=== PATIENT | male | born 1985 | race Caucasian/White ===

== ENCOUNTER 2016-03-22 07:05 | Emergency (ER) | payer SELFPAY ==
[2016-03-22] MEDS ORDERED: LIDOCAINE 2%/EPI 1:100,000 20 ML VIAL. ONE (07:39)
[2016-03-22] MEDS ORDERED: HYDROCODONE/APAP 5/325MG TABLET. PO ONE (07:45)
--- NOTE | 2016-03-22 07:58 | RAD ---
Left hand, 3 views, 03/22/2016: History: Little finger injury A partially radiopaque bandage is projected over the little finger. No fracture or dislocation is identified. There is mild soft tissue deformity of the little finger distally. IMPRESSION: No acute bony abnormality is detected.
[2016-03-22] MEDS ORDERED: HYDR-971 PO (08:27)
[2016-03-22 08:45] VITALS: BP 133/77
[2016-03-22] MEDS ORDERED: LIDOCAINE 2%/EPI 1:100,000 20 ML VIAL. IJ ONE (08:45)
--- NOTE | 2016-03-22 09:32 | ED.ADGEN ---
Adult General HPI HPI Patient is a 31-year-old male presents emergency department with a laceration to his right little finger. Patient did this just prior to arrival. His tetanus is up-to-date. Denies any other injuries. Patient got it caught in a belt driven to tool at home. Review of Systems Review of Systems Constitutional: Denies fever or chills [] Eyes: Denies change in visual acuity, redness, or eye pain [] HENT: Denies nasal congestion or sore throat [] Respiratory: Denies cough or shortness of breath [] Cardiovascular: No additional information not addressed in HPI [] GI: Denies abdominal pain, nausea, vomiting, bloody stools or diarrhea [] : Denies dysuria or hematuria [] Musculoskeletal: Denies back pain or joint pain [] Integument: Denies rash or skin lesions [] Neurologic: Denies headache, focal weakness or sensory changes [] Endocrine: Denies polyuria or polydipsia [] Current Medications Current Medications Current Medications Medications (Trade) Dose Ordered Sig/Mansoor Start Time Stop Time Status Last Admin Dose Admin Acetaminophen/ Hydrocodone Bitart (Lortab 5/325) 2 tab 1X ONCE 03/22/16 07:45 03/22/16 07:46 DC 03/22/16 07:29 2 TAB Lidocaine/ Epinephrine (Xylocaine 2%-Epi 1:100,000) 20 ml 1X ONCE 03/22/16 08:45 03/22/16 08:46 DC 03/22/16 07:50 20 ML Allergies Allergies Allergies Coded Allergies Type Severity Reaction Last Updated Verified Penicillins Allergy Unknown 03/22/16 Yes Physical Exam Physical Exam Constitutional: Well developed, well nourished, no acute distress, non-toxic appearance. [] HENT: Normocephalic, atraumatic, bilateral external ears normal, oropharynx moist, no oral exudates, nose normal. [] Eyes: PERRLA, EOMI, conjunctiva normal, no discharge. [] Neck: Normal range of motion, no tenderness, supple, no stridor. [] Cardiovascular:Heart rate regular rhythm, no murmur [] Lungs & Thorax: Bilateral breath sounds clear to auscultation [] Abdomen: Bowel sounds normal, soft, no tenderness, no masses, no pulsatile masses. [] Skin: Warm, dry, no erythema, no rash. [] Extremities: Left 5th digit 3 cm laceration "J" shaped irregular. n/v intact, FROM Neurologic: Alert and oriented X 3, normal motor function, normal sensory function, no focal deficits noted. [] Psychologic: Affect normal, judgement normal, mood normal. [] Current Patient Data Vital Signs Vital Signs Date Time Temp Pulse Resp B/P Pulse Ox O2 Delivery O2 Flow Rate FiO2 03/22/16 07:29 18 98 Room Air EKG EKG [] Radiology/Procedures Radiology/Procedures Left hand, 3 views, 03/22/2016: History: Little finger injury A partially radiopaque bandage is projected over the little finger. No fracture or dislocation is identified. There is mild soft tissue deformity of the little finger distally. IMPRESSION: No acute bony abnormality is detected. DICTATED AND SIGNED BY: YAYA MAO MD DATE: 03/22/16 0754 CC: AKUA FNETON MD; PCP,NO ~ [] Course & Med Decision Making Course & Med Decision Making Pertinent Labs and Imaging studies reviewed. (See chart for details) [] Final Impression Final Impression finger laceration[] Problems: Dragon Disclaimer Dragon Disclaimer This chart was dictated in whole or in part using Voice Recognition software in a busy, high-work load, and often noisy Emergency Department environment. It may contain unintended and wholly unrecognized errors or omissions. Laceration Repair Lac Repair Indication: laceration Procedure: The patient was placed in the appropriate position and anesthesia was digital block using 1% lidocaine with epi. The area was then cleansed. The laceration was closed using 12 simple interrupted sutures of 5-0 ethilon. The wound area was then dressed with tube gauze and splint Total repaired wound length: 3 cm Other Items: none The patient tolerated the procedure well Complications: none AKUA FENTON MD Mar 22, 2016 09:32
== END 2016-03-22 08:45 | disposition home or self-care (01) ==
LOC: ER 07:05
DX: S61.217A Laceration without foreign body of left little finger without damage to nail, initial encounter (principal); Z88.0 Allergy status to penicillin; W31.89XA Contact with other specified machinery, initial encounter; Y93.89 Activity, other specified; Y99.8 Other external cause status; Y92.009 Unspecified place in unspecified non-institutional (private) residence as the place of occurrence of the external cause
CPT/HCPCS: 12013; 73130; 99284; 99283-25

== ENCOUNTER 2016-06-05 21:04 | Emergency (ER) | payer SELFPAY ==
[~2016-06-05 21:04] MED LIST: HYDR-971 PO
--- NOTE | 2016-06-05 21:12 | ED.ADGEN ---
Past History Past Medical History: No Pertinent History, Anxiety Past Surgical History: Other Alcohol Use: Occasionally Drug Use: None Adult General Chief Complaint Chief Complaint ".. 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 and I am having heck of time try to sleep during the day...".. " I called in today.. or tonight.." [facility] HPI Patient is a 31 year old male who presents with above hx and complaints of insomnia. 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 Pt. does have a history of bipolar disorder. Patient not currently on any meds. Patient denies any suicidal ideation. Patient denies any homicidal ideation. Patient does occasionally have paranoid thoughts. Patient denies psychiatric break. Patient denies any illicit drug use. Patient normally healthy. Patient has no primary care. 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 [] HENT: Normocephalic, atraumatic, bilateral external ears normal, oropharynx moist, no oral exudates, nose normal. [place] Eyes: PERRLA, EOMI, conjunctiva normal, no discharge. [] Neck: Normal range of motion, no tenderness, supple, no stridor. [] Cardiovascular:Heart rate regular rhythm, no murmur [] Lungs & Thorax: Bilateral breath sounds equal at apexes with scattered wheezes on auscultation [] Abdomen: Bowel sounds normal, soft, no tenderness, no masses, no pulsatile masses. [] Skin: Warm, dry, no erythema, no rash. [] Back: No tenderness, no CVA tenderness. [] Extremities: No tenderness, no cyanosis, no clubbing, ROM intact, no edema. [] Neurologic: Alert and oriented X 3, normal motor function, normal sensory function, no focal deficits noted. [] Psychologic: Affect anxious, judgement normal, mood normal. [] Current Patient Data Vital Signs Vital Signs Date Time Temp Pulse Resp B/P Pulse Ox O2 Delivery O2 Flow Rate FiO2 06/05/16 21:15 98.4 94 20 100 Room Air EKG EKG [] Radiology/Procedures Radiology/Procedures [] Course & Med Decision Making Course & Med Decision Making Pertinent Labs and Imaging studies reviewed. (See chart for details). Patient instructed to stay up tonight. Keep on third shift schedule. In the morning patient's take Ativan 2 mg for take Benadryl 50 mg. Patient remain on third shift schedule. Patient encouraged follow-up primary care for additional meds or renewals. Patient encouraged follow-up with counseling center. Patient return if any concerns. On days off patient instructed remain on third shift schedule to prevent sleep disruption. Patient encouraged to stop smoking. [] Final Impression Final Impression 1. Insomnia- third shift [] 2. Tobacco use 3. History bipolar disorder Problems: Dragon Disclaimer Dragon Disclaimer This electronic medical record was generated, in whole or in part, using a voice recognition dictation system. ALLA BURDEN MD Jun 05, 2016 21:12
[2016-06-05 21:15] VITALS: BP 130/89
[2016-06-05] MEDS ORDERED: LORA2TAB89 PO (21:20)
== END 2016-06-05 21:30 | disposition home or self-care (01) ==
LOC: ER 21:06
DX: G47.09 Other insomnia (principal); F31.9 Bipolar disorder, unspecified; F41.9 Anxiety disorder, unspecified; Z88.0 Allergy status to penicillin
CPT/HCPCS: 99283

== ENCOUNTER 2016-06-06 11:22 | Emergency (ER) | payer SELFPAY ==
[~2016-06-06] VITALS: Ht 185.4 cm; Wt 113.4 kg
[~2016-06-06 11:22] MED LIST changes: +LORA2TAB89 PO
[2016-06-06 11:59] LABS: HEMATOCRIT 50.8 % (39.0-53.0); HEMOGLOBIN 17.4 g/dL (13.0-17.5); RED BLOOD COUNT 5.96 x10^6/uL (4.30-5.70); RED CELL DISTRIBUTION WIDTH 13.3 % (11.5-14.5); WHITE BLOOD COUNT 10.6 x10^3/uL (4.0-11.0)
[2016-06-06 12:13] LABS: ACETAMIN < 2.0 mcg/mL (10-30); SALIC 1.5 mg/dL (2.8-20.0)
[2016-06-06 12:14] LABS: ALBUMIN 4.2 g/dL (3.4-5.0); ALBUMIN/GLOBULIN RATIO 1.3 (1.0-1.7); CALCIUM 9.4 mg/dL (8.5-10.1); CREATININE 1.1 mg/dL (0.7-1.3); ETHANOL < 10 mg/dL (0-10); GFR 78.6; TOTAL BILIRUBIN 1.1 mg/dL (0.2-1.0); TOTAL PROTEIN 7.4 g/dL (6.4-8.2)
--- NOTE | 2016-06-06 12:29 | ED.ADGEN ---
Past History Past Medical History: Anxiety, Bipolar Past Surgical History: Other Additional Smoking Information: 1PACK/DAY Alcohol Use: Occasionally Drug Use: Marijuana Adult General Chief Complaint Chief Complaint Suicidal ideation HPI HPI Patient is a 31 year old male who presents with suicidal thoughts. Patient has plans that he would have " by police". He explains that he would pull out a weapon from the police to cause them to shoot him. Patient reports he's been awake for 4 days but did sleep last night, having a manic episode. He reports history of bipolar and generalized anxiety disorder. He is previously on lithium and olanzapine but has not been taking this medication for some time. He thinks he and his family would be better off if he was in a life. He also has thoughts of overdosing or shooting himself with a gun. He does not himself own a gun himself but his family members do and also reports that he is legally allowed to get a gun. Reports MJ drug use, no other drugs or etoh. Denies that he took or did anything today to hurt himself. Review of Systems Review of Systems Constitutional: Denies fever or chills [] Eyes: Denies change in visual acuity, redness, or eye pain [] HENT: Denies nasal congestion or sore throat [] Respiratory: Denies cough or shortness of breath [] Cardiovascular: Denies chest pain GI: Denies abdominal pain, nausea, vomiting, bloody stools or diarrhea [] : Denies dysuria or hematuria [] Musculoskeletal: Denies back pain or joint pain [] Integument: Denies rash or skin lesions [] Neurologic: Denies headache, focal weakness or sensory changes [] Current Medications Current Medications Current Medications Medications (Trade) Dose Ordered Sig/Mansoor Start Time Stop Time Status Last Admin Dose Admin Acetaminophen (Tylenol) 1,000 mg 1X ONCE 06/06/16 15:10 06/06/16 15:11 DC 06/06/16 15:43 1,000 MG Lorazepam (Ativan) 1 mg STK-MED ONCE 06/06/16 13:39 06/06/16 13:40 DC Olanzapine (Zyprexa) 10 mg 1X ONCE 06/06/16 16:00 06/06/16 16:01 DC 06/06/16 15:43 10 MG Allergies Allergies Allergies Coded Allergies Type Severity Reaction Last Updated Verified Penicillins Allergy Unknown 03/22/16 Yes Physical Exam Physical Exam Constitutional: Well developed, well nourished, no acute distress, non-toxic appearance. [] HENT: Normocephalic, atraumatic, bilateral external ears normal, oropharynx moist, no oral exudates, nose normal. [] Eyes: PERRLA, EOMI, conjunctiva normal, no discharge. [] Neck: Normal range of motion, no tenderness, supple, no stridor. [] Cardiovascular:Heart rate mild tachy, regular rhythm, no murmur [] Lungs & Thorax: Bilateral breath sounds clear to auscultation [] Abdomen: Bowel sounds normal, soft, no tenderness, no masses, no pulsatile masses. [] Skin: Warm, dry, no erythema, no rash. [] Back: No tenderness, no CVA tenderness. [] Extremities: No tenderness, no cyanosis, no clubbing, ROM intact, no edema. [] Neurologic: Alert and oriented X 3, normal motor function, normal sensory function, no focal deficits noted. [] Psychologic: flat affect, depressed mood, ++SI Current Patient Data Vital Signs Vital Signs Date Time Temp Pulse Resp B/P Pulse Ox O2 Delivery O2 Flow Rate FiO2 06/06/16 11:48 97.7 125 22 98 Room Air 06/06/16 11:37 157/90 Lab Results Laboratory Tests Test 06/06/16 11:41 06/06/16 12:10 White Blood Count 10.6x10^3/uL (4.0-11.0) Red Blood Count 5.96x10^6/uL (4.30-5.70) H Hemoglobin 17.4g/dL (13.0-17.5) Hematocrit 50.8% (39.0-53.0) Mean Corpuscular Volume 85fL (79-100) Mean Corpuscular Hemoglobin 29pg (25-35) Mean Corpuscular Hemoglobin Concent 34g/dL (31-37) Red Cell Distribution Width 13.3% (11.5-14.5) Platelet Count 335x10^3/uL (140-400) Sodium Level 143mmol/L (136-145) Potassium Level 4.0mmol/L (3.5-5.1) Chloride Level 106mmol/L (98-107) Carbon Dioxide Level 25mmol/L (21-32) Anion Gap 12 (6-14) Blood Urea Nitrogen 13mg/dL (8-26) Creatinine 1.1mg/dL (0.7-1.3) Estimated GFR (Cockcroft-Gault) 78.6 BUN/Creatinine Ratio 12 (6-20) Glucose Level 123mg/dL (70-99) H Calcium Level 9.4mg/dL (8.5-10.1) Total Bilirubin 1.1mg/dL (0.2-1.0) H Aspartate Amino Transferase (AST) 37U/L (15-37) Alanine Aminotransferase (ALT) 92U/L (16-63) H Alkaline Phosphatase 56U/L (46-116) Total Protein 7.4g/dL (6.4-8.2) Albumin 4.2g/dL (3.4-5.0) Albumin/Globulin Ratio 1.3 (1.0-1.7) Salicylates Level 1.5mg/dL (2.8-20.0) L Salicylate Last Dose Date Unknown Salicylate Last Dose Time Unknown Acetaminophen Level < 2.0mcg/mL (10-30) L Acetaminophen Last Dose Date Unknown Acetaminophen Last Dose Time Unknown Ethyl Alcohol Level < 10mg/dL (0-10) Urine Collection Type Unknown Urine Color Brittney Urine Clarity Clear Urine pH >8.5 Urine Specific [place] 1.015 Urine Protein 100 mg/dl (NEG-TRACE) Urine Glucose (UA) Negmg/dL (NEG) Urine Ketones (Stick) Tracemg/dL (NEG) Urine Blood Neg (NEG) Urine Nitrite Neg (NEG) Urine Bilirubin Neg (NEG) Urine Urobilinogen Dipstick 2mg/dL (0.2 mg/dL) Urine Leukocyte Esterase Neg (NEG) Urine RBC 1-2/HPF (0-2) Urine WBC 1-4/HPF (0-4) Urine Squamous Epithelial Cells Occ/LPF Urine Bacteria Few/HPF (0-FEW) Urine Mucus Slight/LPF Urine Opiates Screen Neg (NEG) Urine Methadone Screen Neg (NEG) Urine Barbiturates Neg (NEG) Urine Phencyclidine Screen Neg (NEG) Urine Amphetamine/Methamphetamine Neg (NEG) Urine Benzodiazepines Screen Neg (NEG) Urine Cocaine Screen Neg (NEG) Urine Cannabinoids Screen Pos (NEG) Urine Ethyl Alcohol Neg (NEG) EKG EKG [] Radiology/Procedures Radiology/Procedures [] Course & Med Decision Making Course & Med Decision Making Pertinent Labs and Imaging studies reviewed. (See chart for details) Pt in room visualized by staff, at bedside. Labs and urine ordered. Telepsych used to evaluate pt's SI. While taking to telepsych, pt was pacing and appeared agitated, wanting to leave. 2mg po ativan given. Pt evaluated by Dr. Smiley, he believes pt requires inpt psychiatric evaluation. Recommended zyprexa, and 10mg po zyprexa given. Pt received Tylenol for headache. Pt calmed and we started to send out to area hospitals to try and have the patient placed. Care transferred to Dr. Hughes at 1800 pending placement. Final Impression Final Impression Suicidal ideation Depression[] Problems: Dragon Disclaimer Dragon Disclaimer This electronic medical record was generated, in whole or in part, using a voice recognition dictation system. RODRÍGUEZ HUNG MD Jun 06, 2016 12:29
[2016-06-06 12:40] LABS: BACTERIA,URINE FEW /HPF (0-FEW); BARBITURATES NEG (NEG); BENZODIAZEPINES NEG (NEG); BILIRUBIN,URINE NEG (NEG); CANNABINOIDS POS (NEG); CLARITY,URINE CLEAR; COCAINE NEG (NEG); COLOR,URINE AMBER; GLUCOSE,URINE NEG (NEG); METHADONE NEG (NEG); NITRITE,URINE NEG (NEG); OPIATES NEG (NEG); PHENCYCLIDINE NEG (NEG); SQUAMOUS EPITHELIAL CELL,UR OCC /LPF; UROBILINOGEN,URINE 2 mg/dL (0.2 mg/dL)
[2016-06-06 12:41] LABS: AMPHETAMINE/METHAMPHETAMINE NEG (NEG)
[2016-06-06] MEDS ORDERED: LORAZEPAM 1 MG TABLET. ONE (13:39)
[2016-06-06] MEDS ORDERED: LORAZEPAM 1 MG TABLET. PO ONE ×3 (14:00→21:00)
[2016-06-06] MEDS ORDERED: ACETAMINOPHEN 500 MG TABLET PO ONE (15:10)
[2016-06-06] MEDS ORDERED: OLANZAPINE 2.5 MG TABLET PO ONE (16:00)
--- NOTE | 2016-06-06 19:06 | ACF ---
Admission Criteria Forms PSYCHIATRIC DISORDERS Clinical Indications for Inpatient Care (Place 'X' for any and all applicable criteria): Ongoing inpatient care may be needed for ANY ONE of the following(1)(2)(3)(4)(6) (7)(8): [X]I. Danger to self or others not manageable at lower level of care. [ ]II. Grave disability (eg, inability to perform self care necessary at lower level of care) [ ]III. Agitation or inappropriate behavior interfering with care for primary condition (eg, attempting to discontinue lines or drains prematurely, unable to cooperate with respiratory care) [ ]IV. Severe disability or disorder indicated by ALL of the following: [ ]a) Severe behavioral health disorder-related symptoms or condition indicated by ANY ONE of the following: [ ]i) Severe problem with cognition, memory, judgment, or impulse control [ ]ii) Severe clinical manifestations (eg, hallucinations, delusions, other acute psychotic symptoms, kaylin, extreme agitation or anxiety) [ ]b) Patient management at lower level of care is not feasible until acute intervention or modification is initiated. Extended stay beyond goal length of stay for the primary condition may be indicated when ANY ONE of the following is present: (1)(2)(3)(4): [ ]a) Patient is a danger to self or others and not manageable at lower level of care. [ ]b) Behavior crisis management, including physical or chemical restraints, is required and is not available at a lower level of care. [ ]c) Behavioral symptoms (e.g., agitation, somnolence, inappropriate behavior) are present, and are not manageable at a lower level of care. [ ]d) Patient cannot understand follow-up treatment and crisis plan. [ ]e) Provider and supports are not sufficiently available at lower level of care. [ ]f) Patient cannot participate (e.g., verify absence of plan for harm) and is in needed of monitoring. The original [facility] content created by [employer] has been revised. The portions of the content which have been revised are identified through the use of italic text or in bold, and [facility] has neither reviewed nor approved the modified material. All other unmodified content is copyright [facility] [employer]. Please see references footnoted in the original [facility] edition 2016 Admission Criteria Met?: Yes KULWANT ANAYA Jun 06, 2016 19:06
[2016-06-06] MEDS ORDERED: OLANZAPINE ZYDIS 5 MG TAB.RAPDIS PO ONE (19:30)
[2016-06-06] MEDS ORDERED: DIPHENHYDRAMINE HCL 25 MG CAPSULE PO ONE (19:30)
[2016-06-06 20:30] VITALS: BP 143/84
[2016-06-06] MEDS ORDERED: OXYCODONE/APAP 10/325 TABLET. PO ONE (21:15)
== END 2016-06-06 21:10 ==
LOC: ER 11:22
DX: R45.851 Suicidal ideations (principal); F32.9 Major depressive disorder, single episode, unspecified; F41.1 Generalized anxiety disorder; F17.200 Nicotine dependence, unspecified, uncomplicated; F12.10 Cannabis abuse, uncomplicated; Z88.0 Allergy status to penicillin
CPT/HCPCS: 36415; 80053; 80305; 80320; 81001; 85027; 99285; G6038; Q0163; G0480; G0481; 80196

== ENCOUNTER 2019-09-19 10:50 | Emergency (ER) | payer SELFPAY ==
[~2019-09-19] VITALS: Ht 185.4 cm; Wt 121.3 kg
[~2019-09-19 10:50] MED LIST changes: +HYDR-3165 PO; -HYDR-971 PO
--- NOTE | 2019-09-19 11:10 | PHYS DOC ---
Past History Past Medical History: Anxiety, Bipolar (LILIANA KING DO) Past Surgical History: Other (LILIANA KING DO) Alcohol Use: Occasionally Drug Use: Marijuana (LILIANA KING DO) General Adult EDM: Chief Complaint: ALTERED MENTAL STATUS HPI: HPI: 34-year-old male presents with paranoia. Patient is reported to have bipolar disorder and has not been taking his medications all the time. He tells me that he just restarted. He still has his medications at home. He is having some paranoid delusions that people are after him and trying to take things from him. He is caring around a bag full of papers with receipts in them. He denies any pain or other medical concerns. Patient smokes a pack of cigarettes a day. He also smokes marijuana. He denies other drug use. He follows with the [facility] but has not seen them in a while. (LILIANA KING DO) Review of Systems: Review of Systems: Constitutional: Denies fever or chills Eyes: Denies change in visual acuity HENT: Denies nasal congestion or sore throat Respiratory: Denies cough or shortness of breath Cardiovascular: Denies chest pain or edema GI: Denies abdominal pain, nausea, vomiting, bloody stools or diarrhea : Denies dysuria Musculoskeletal: Denies back pain or joint pain Integument: Denies rash Neurologic: Denies headache, focal weakness or sensory changes Endocrine: Denies polyuria or polydipsia Lymphatic: Denies swollen glands Psychiatric: Paranoid delusions (LILIANA KING DO) Heart Score: Risk Factors: Risk Factors: DM, Current or recent (<one month) smoker, HTN, HLP, family history of CAD, obesity. Risk Scores: Score 0 - 3: 2.5% MACE over next 6 weeks - Discharge Home Score 4 - 6: 20.3% MACE over next 6 weeks - Admit for Clinical Observation Score 7 - 10: 72.7% MACE over next 6 weeks - Early Invasive Strategies (LILIANA KING DO) Allergies: Allergies: Allergies Coded Allergies Type Severity Reaction Last Updated Verified Penicillins Allergy Unknown 03/22/16 Yes (LILIANA KING DO) Physical Exam: PE: Constitutional: Well developed, obese, well nourished, no acute distress, non- toxic appearance. [] HENT: Normocephalic, atraumatic, bilateral external ears normal, oropharynx moist, no oral exudates, nose normal. [] Eyes: PERRLA, EOMI, conjunctiva normal, no discharge. [] Neck: Normal range of motion, no tenderness, supple, no stridor. [] Cardiovascular: Heart rate regular rhythm, no murmur [] Lungs & Thorax: Bilateral breath sounds clear to auscultation [] Abdomen: Bowel sounds normal, soft, no tenderness, no masses, no pulsatile masses. [] Skin: Warm, dry, no erythema, no rash. [] Back: No tenderness, no CVA tenderness. [] Extremities: No tenderness, no cyanosis, no clubbing, ROM intact, no edema. [] Neurologic: Alert and oriented X 3, normal motor function, normal sensory function, no focal deficits noted. [] Psychologic: Paranoid delusions, flight of ideas, anxious [] (LILINAA KING DO) PE: Constitutional: Well developed, well nourished, no acute distress, non-toxic appearance HENT: Normocephalic, atraumatic Eyes: Conjunctiva normal, no discharge Neck: Normal range of motion, supple Lungs & Thorax: No respiratory distress, equal chest rise and fall Skin: Warm, dry, no erythema, no rash Neurologic: Alert and oriented X 3, no focal deficits noted Psychologic: Affect anxious, judgment normal (JANELLE AUGUST DO) EKG: EKG: [] (LILIANA KING DO) Radiology/Procedures: Radiology/Procedures: [] (LILIANA KING DO) Course & Med Decision Making: Course & Med Decision Making Pertinent Labs and Imaging studies reviewed. (See chart for details) The patient has refused blood work and urinalysis. I do not think it is a good idea to force him to give the specimens. We will attempt talk to the [facility] without these results to develop a plan. The patient is not suicidal or homicidal. The patient has been very agitated, but he did agree to give us urine sample and to allow us to check blood work. We have given the patient 10 mg of Haldol IV as well as a liter of normal saline. He had a psychiatric evaluation and was determined he needs to be an involuntary admission. Placement is being arranged for the patient. I have his ordered the start of his maintenance medications of lithium and Seroquel. He will not transfer during my shift. Dr. Alberto is taking over for the night. She will monitor progress on placement. Dayshift 09/20/2019 Patient was calm and cooperative throughout this shift. He was given his beverly eduled medications and food. He slept a significant portion of the time. We are still working on placement as the facility we hoped he could go to was full before he can be accepted. We are additionally trying to get him admitted to [facility]. Their decision is pending. [] (LILIANA KING DO) Course & Med Decision Making Assumed care of patient at check out from Dr King. Patient presents with acute psychosis and is being held involuntarily due to concern for safety. Patient is stable at this time and medically cleared to receive psychiatric care. 09/21/19 0530: No problems overnight. Signing over to Dr Alcantara. (SHERRIE ALBERTO MD) Course & Med Decision Making 09/22/19 @0600 Sign out received from Dr. King for holding psychiatric patient awaiting accepting facility and physician. Patient had previously been off his medications and seemed to be displaying some bipolar exacerbation. Patient without difficulty throughout shift. At 72 hour sonia, patient asking if he now can leave. Patient reports feeling stable on his medications. Discussed change with Richard at [facility]. Richard discussed with patient's spouse and the patient. Patient deemed safe for discharge home with close outpatient follow-up with [facility]. Patient stable for discharge with outpatient follow-up with PCP/mental health. Discussed findings and plan with patient, who acknowledges understanding and agreement. (JANELLE AUGUST DO) [place] Disclaimer: Dragon Disclaimer: This electronic medical record was generated, in whole or in part, using a voice recognition dictation system. (LILIANA KING DO) Departure Departure: Impression: Primary Impression: Bipolar disorder Qualified Codes: F31.73 - Bipolar disorder, in partial remission, most recent episode manic Additional Impression: Paranoid delusion Disposition: HOME/RESIDENCE PRIOR TO ADM Condition: STABLE Referrals: PCP,TYRELL (PCP) Patient Instructions: Manic Depression (Bipolar Disorder), Paranoia Additional Instructions: Please keep your appointment with [facility] for further evaluation and treatment. Take your prescribed medications as directed. Justification of Admission: Justification of Admission: Justification of Admission Dx: N/A (LILIANA KING DO) Justification of Admission Dx: N/A (JANELLE AUGUST DO) LILIANA KING DO Sep 19, 2019 11:10 SHERRIE ALBERTO MD Sep 19, 2019 21:04 JANELLE AUGUST DO Sep 22, 2019 14:57
[2019-09-19] MEDS ORDERED: HALOPERIDOL LACT 5 MG/ML VIAL. IM ONE (11:45)
[2019-09-19] MEDS ORDERED: IV NORMAL SALINE 1,000ML 1,000 ML IV ONE (12:15)
[2019-09-19 12:23] LABS: BASO # 0.1 x10^3/uL (0.0-0.2); BASO % 1 % (0-3); EOS # 0.1 x10^3/uL (0.0-0.7); EOS % 2 % (0-3); HEMATOCRIT 50.1 % (39.0-53.0); LYMPH # 3.5 x10^3/uL (1.0-4.8); LYMPH % 40 % (24-48); MEAN CORPUSCULAR HEMOGLOBIN 28 pg (25-35); MEAN CORPUSCULAR HGB CONC 34 g/dL (31-37); MEAN CORPUSCULAR VOLUME 81 fL (79-100); MONO % 11 % (0-9); NEUT # 4.1 x10^3uL (1.8-7.7); NEUT % 47 % (31-73); PLATELET COUNT 368 x10^3/uL (140-400); RED CELL DISTRIBUTION WIDTH 12.9 % (11.5-14.5); WHITE BLOOD COUNT 8.8 x10^3/uL (4.0-11.0)
[2019-09-19 12:29] LABS: BARBITURATES NEG (NEG); BENZODIAZEPINES NEG (NEG); CANNABINOIDS NEG (NEG); COCAINE NEG (NEG); METHADONE NEG (NEG); OPIATES NEG (NEG); PHENCYCLIDINE NEG (NEG)
[2019-09-19 12:30] LABS: BILIRUBIN,URINE NEG (NEG); CLARITY,URINE CLEAR; COLOR,URINE AMBER; GLUCOSE,URINE NEG (NEG); NITRITE,URINE NEG (NEG); RBC,URINE 0 /HPF (0-2); UROBILINOGEN,URINE 0.2 mg/dL (0.2 mg/dL)
[2019-09-19 12:31] LABS: BACTERIA,URINE 0 /HPF (0-FEW); HYALINE CASTS, URINE FEW /HPF; SPERM,URINE PRESENT /HPF; SQUAMOUS EPITHELIAL CELL,UR OCC /LPF
[2019-09-19 12:31] LABS: CALCIUM 9.4 mg/dL (8.5-10.1); CREATININE 1.4 mg/dL (0.7-1.3); GFR 58.4; POTASSIUM 4.1 mmol/L (3.5-5.1)
[2019-09-19 12:35] LABS: AMPHETAMINE/METHAMPHETAMINE POS (NEG)
[2019-09-19 12:39] LABS: ALBUMIN 4.2 g/dL (3.4-5.0); ALBUMIN/GLOBULIN RATIO 1.2 (1.0-1.7); TOTAL BILIRUBIN 1.3 mg/dL (0.2-1.0); TOTAL PROTEIN 7.8 g/dL (6.4-8.2)
[2019-09-19] MEDS: QUEtiapine 100 MG TABLET. PO SCH (22:47)
[2019-09-19] MEDS: LITHIUM CARBONATE 300 MG TABLET PO SCH (22:47)
[2019-09-20] MEDS: LITHIUM CARBONATE 300 MG TABLET PO SCH ×3 (09:37→20:57)
[2019-09-20] MEDS: QUEtiapine 100 MG TABLET. PO SCH (09:38)
[2019-09-21] MEDS: QUEtiapine 100 MG TABLET. PO SCH ×2 (08:51→20:39)
[2019-09-21] MEDS: LITHIUM CARBONATE 300 MG TABLET PO SCH ×3 (08:51→20:39)
[2019-09-21] MEDS ORDERED: NICOTINE 21MG PATCH. TD ONE (20:00)
[2019-09-21 20:41] VITALS: BP 127/75
[2019-09-22] MEDS: LITHIUM CARBONATE 300 MG TABLET PO SCH ×2 (08:31→14:21)
== END 2019-09-22 15:10 | disposition home or self-care (01) ==
LOC: ER 10:50
DX: F31.73 Bipolar disorder, in partial remission, most recent episode manic (principal); F22 Delusional disorders; F41.9 Anxiety disorder, unspecified; F17.210 Nicotine dependence, cigarettes, uncomplicated; F12.10 Cannabis abuse, uncomplicated; Z03.818 Encounter for observation for suspected exposure to other biological agents ruled out; Z88.0 Allergy status to penicillin
CPT/HCPCS: 36415; 80053; 80307; 81001; 85025; 96372; 99285; J1630; J7030; U0003

== ENCOUNTER 2020-01-13 21:56 | Emergency (ER) | payer SELFPAY ==
[~2020-01-13] VITALS: Ht 185.4 cm; Wt 121.3 kg
[2020-01-13 21:56] VITALS: BP 123/82
[2020-01-13] MEDS ORDERED: QUET25TA5 PO (22:22)
--- NOTE | 2020-01-13 22:22 | PHYS DOC ---
Past History Past Medical History: Anxiety, Bipolar Past Surgical History: Tonsillectomy, Other Additional Past Surgical Histo: ACL Alcohol Use: None Drug Use: Marijuana General Adult EDM: Chief Complaint: ANXIETY/PANIC ATTACK HPI: HPI: 34-year-old male presents with generalized anxiety. Patient has a standing history of schizoaffective disorder and anxiety. He has been on Seroquel in the past. Tapered him off of that and started him on Abilify injections. He just came back from out of town and has not slept well for 2 days. He is very worried about his psychiatric condition worsening and having another psychotic episode. He had 1 of these recently and was hospitalized. He is due for his next Abilify injection day after tomorrow. He is requesting Seroquel to bridge him for the next 2 days and possibly something to help him fall asleep tonight. He does not want anything habit-forming. Patient denies any other injuries or concerns at this time. Review of Systems: Review of Systems: Constitutional: Denies fever or chills Eyes: Denies change in visual acuity HENT: Denies nasal congestion or sore throat Respiratory: Denies cough or shortness of breath Cardiovascular: Denies chest pain or edema GI: Denies abdominal pain, nausea, vomiting, bloody stools or diarrhea : Denies dysuria Musculoskeletal: Denies back pain or joint pain Integument: Denies rash Neurologic: Denies headache, focal weakness or sensory changes Endocrine: Denies polyuria or polydipsia Lymphatic: Denies swollen glands Psychiatric: Anxious Allergies: Allergies: Allergies Coded Allergies Type Severity Reaction Last Updated Verified Penicillins Allergy Unknown 03/22/16 Yes Physical Exam: PE: Constitutional: Well developed, well nourished, no acute distress, non-toxic appearance. [] HENT: Normocephalic, atraumatic, bilateral external ears normal, oropharynx moist, no oral exudates, nose normal. [] Eyes: PERRLA, EOMI, conjunctiva normal, no discharge. [] Neck: Normal range of motion, no tenderness, supple, no stridor. [] Cardiovascular:Heart rate regular rhythm, no murmur [] Lungs & Thorax: Bilateral breath sounds clear to auscultation [] Abdomen: Bowel sounds normal, soft, no tenderness, no masses, no pulsatile masses. [] Skin: Warm, dry, no erythema, no rash. [] Back: No tenderness, no CVA tenderness. [] Extremities: No tenderness, no cyanosis, no clubbing, ROM intact, no edema. [] Neurologic: Alert and oriented X 3, normal motor function, normal sensory function, no focal deficits noted. [] Psychologic: Affect normal, judgement normal, mood anxious. [] EKG: EKG: [] Radiology/Procedures: Radiology/Procedures: [] Heart Score: Risk Factors: Risk Factors: DM, Current or recent (<one month) smoker, HTN, HLP, family history of CAD, obesity. Risk Scores: Score 0 - 3: 2.5% MACE over next 6 weeks - Discharge Home Score 4 - 6: 20.3% MACE over next 6 weeks - Admit for Clinical Observation Score 7 - 10: 72.7% MACE over next 6 weeks - Early Invasive Strategies Course & Med Decision Making: Course & Med Decision Making Pertinent Labs and Imaging studies reviewed. (See chart for details) On exam, the patient is obviously anxious and is concerned about his condition worsening. I believe his plan for Seroquel is reasonable. I will give him 50mg in the emergency room as well as 25 Benadryl for tonight. I will give him a prescription for 6 more Seroquel 25 mg tabs to use as needed. [] Lamont Disclaimer: Lamont Disclaimer: This electronic medical record was generated, in whole or in part, using a voice recognition dictation system. Departure Departure: Impression: Primary Impression: Anxiety about health Additional Impression: Sleep deprivation Disposition: 01 DC HOME SELF CARE/HOMELESS Condition: STABLE Referrals: PCP,TYRELL (PCP) Patient Instructions: Anxiety and Panic Attacks, [id number] Scripts Quetiapine Fumarate (SEROQUEL) 25 Mg Tablet 1 TAB PO BID for anxiety, #6 TAB 1 Refill Prov: LILIANA KING DO 01/13/20 LILIANA KING DO Jan 13, 2020 22:22
[2020-01-13] MEDS ORDERED: diphenhydrAMINE HCL 25 MG CAPSULE PO ONE (22:30)
[2020-01-13] MEDS ORDERED: QUEtiapine 50 MG TABLET. PO ONE (22:30)
== END 2020-01-13 23:10 | disposition home or self-care (01) ==
LOC: ER 21:56
DX: F41.1 Generalized anxiety disorder (principal); Z72.820 Sleep deprivation; F31.9 Bipolar disorder, unspecified; Z88.0 Allergy status to penicillin
CPT/HCPCS: 99283; Q0163